=== PATIENT | male | born 1990 | race Caucasian/White ===

== ENCOUNTER → 2017-08-10 | Outpatient (CLI) | payer BC | LOC: M OUTALCOH 08:59 | PROVIDERS: ATTEND Psychiatry & Neurology Psychiatry | DX: F10.20 Alcohol dependence, uncomplicated (principal) ==

== ENCOUNTER 2017-10-18 15:00 | Outpatient (RCR) | payer BC | END 2017-10-19 | LOC: M OUTALCOH 15:00 | PROVIDERS: ATTEND Psychiatry & Neurology Psychiatry | DX: F10.20 Alcohol dependence, uncomplicated (principal); F17.200 Nicotine dependence, unspecified, uncomplicated ==

== ENCOUNTER 2017-10-25 15:00 | Outpatient (RCR) | payer BC | END 2017-11-19 | LOC: M OUTALCOH 11-01 15:00 | DX: F10.20 Alcohol dependence, uncomplicated (principal); F17.200 Nicotine dependence, unspecified, uncomplicated ==

== ENCOUNTER 2017-11-07 19:23 | Emergency (ER) | payer BC ==
[~2017-11-07] VITALS: Ht 162.6 cm; Wt 61.4 kg
[2017-11-07] MEDS ORDERED: PROZ10CA7 (19:34)
[2017-11-07] MEDS ORDERED: PENI500T PO (19:34)
[2017-11-07] MEDS ORDERED: IBUP-1114 PO (19:34)
[2017-11-07] MEDS ORDERED: NORCO 5/325MG TABLET (BULK FOR ED) PO ONE (20:45)
[2017-11-07] MEDS ORDERED: CLINDAMYCIN 150 MG CAP PO ONE (20:45)
[2017-11-07] MEDS ORDERED: CLEO300C2 PO (20:48)
[2017-11-07] MEDS ORDERED: NORCOTAB PO (20:48)
[2017-11-07 21:03] VITALS: BP 132/68
== END 2017-11-07 21:04 | disposition home or self-care (01) ==
LOC: M ED 19:23
DX: K02.9 Dental caries, unspecified (principal); K08.89 Other specified disorders of teeth and supporting structures; Z79.899 Other long term (current) drug therapy; Z88.0 Allergy status to penicillin

== ENCOUNTER 2017-11-27 10:57 | Outpatient (RCR) | payer BC | END 2017-12-20 | LOC: M OUTALCOH 11-29 16:00 | DX: F10.20 Alcohol dependence, uncomplicated (principal); F17.200 Nicotine dependence, unspecified, uncomplicated ==

== ENCOUNTER 2017-12-21 15:44 | Outpatient (RCR) | payer BC | END 2018-01-17 | LOC: M OUTALCOH 15:44 | DX: F10.20 Alcohol dependence, uncomplicated (principal); F17.200 Nicotine dependence, unspecified, uncomplicated ==

== ENCOUNTER 2018-01-23 16:00 | Outpatient (RCR) | payer BC | END 2018-02-17 | LOC: M OUTALCOH 02-07 16:00 | DX: F10.20 Alcohol dependence, uncomplicated (principal); F17.200 Nicotine dependence, unspecified, uncomplicated ==

== ENCOUNTER 2018-02-26 09:52 | Outpatient (RCR) | payer BC | END 2018-03-19 | LOC: M OUTALCOH 09:52 | DX: F10.20 Alcohol dependence, uncomplicated (principal); F17.200 Nicotine dependence, unspecified, uncomplicated ==

== ENCOUNTER → 2019-01-29 | Outpatient (CLI) | payer MEDICAID, SELFPAY ==
[~2019-01-29] MED LIST: CLEO300C2 PO; IBUP-1114 PO; NORCOTAB PO; PENI500T PO; PROZ10CA7
== END ==
LOC: M OUTALCOH 08:00
PROVIDERS: ATTEND Psychiatry & Neurology Psychiatry
DX: F10.20 Alcohol dependence, uncomplicated (principal)

== ENCOUNTER 2019-02-15 13:00 | Outpatient (RCR) | payer MEDICAID, SELFPAY | END 2019-02-17 | LOC: M OUTALCOH 13:00 | PROVIDERS: ATTEND Psychiatry & Neurology Psychiatry | DX: F10.20 Alcohol dependence, uncomplicated (principal); F17.200 Nicotine dependence, unspecified, uncomplicated ==

== ENCOUNTER 2019-03-18 14:00 | Outpatient (RCR) | payer OTHER, SELFPAY ==
[~2019-03-18 14:00] MED LIST changes: +HYDR-3715 PO; -NORCOTAB PO
== END 2019-03-19 ==
LOC: M OUTALCOH 14:00
PROVIDERS: ATTEND Psychiatry & Neurology Psychiatry
DX: F10.20 Alcohol dependence, uncomplicated (principal); F17.200 Nicotine dependence, unspecified, uncomplicated

== ENCOUNTER → 2019-04-19 | Outpatient (RCR) | payer OTHER | LOC: M OUTALCOH 03-22 16:19 | PROVIDERS: ATTEND Psychiatry & Neurology Psychiatry | DX: F10.20 Alcohol dependence, uncomplicated (principal); F17.200 Nicotine dependence, unspecified, uncomplicated ==

== ENCOUNTER 2019-05-15 16:00 | Outpatient (RCR) | payer OTHER | END 2019-05-19 | LOC: M OUTALCOH 16:00 | PROVIDERS: ATTEND Psychiatry & Neurology Psychiatry | DX: F10.20 Alcohol dependence, uncomplicated (principal); F17.200 Nicotine dependence, unspecified, uncomplicated ==

== ENCOUNTER 2019-06-18 12:52 | Outpatient (RCR) | payer OTHER | END 2019-06-19 | LOC: M OUTALCOH 12:52 | PROVIDERS: ATTEND Psychiatry & Neurology Psychiatry | DX: F10.20 Alcohol dependence, uncomplicated (principal); F17.200 Nicotine dependence, unspecified, uncomplicated ==

== ENCOUNTER 2019-07-17 12:00 | Outpatient (RCR) | payer OTHER | END 2019-07-20 | LOC: M OUTALCOH 12:00 | PROVIDERS: ATTEND Psychiatry & Neurology Psychiatry | DX: F10.20 Alcohol dependence, uncomplicated (principal); F17.200 Nicotine dependence, unspecified, uncomplicated ==

== ENCOUNTER 2019-08-12 15:57 | Outpatient (RCR) | payer OTHER | END 2019-08-19 | LOC: M OUTALCOH 15:57 | PROVIDERS: ATTEND Psychiatry & Neurology Psychiatry | DX: F10.20 Alcohol dependence, uncomplicated (principal); F17.200 Nicotine dependence, unspecified, uncomplicated ==

== ENCOUNTER 2019-08-26 15:10 | Outpatient (RCR) | payer OTHER | END 2019-09-19 | LOC: M OUTALCOH 15:10 | PROVIDERS: ATTEND Psychiatry & Neurology Psychiatry | DX: F10.20 Alcohol dependence, uncomplicated (principal); F17.200 Nicotine dependence, unspecified, uncomplicated ==

== ENCOUNTER 2019-09-30 14:10 | Outpatient (RCR) | payer OTHER | END 2019-10-19 | LOC: M OUTALCOH 14:10 | PROVIDERS: ATTEND Psychiatry & Neurology Psychiatry | DX: F10.20 Alcohol dependence, uncomplicated (principal); F17.200 Nicotine dependence, unspecified, uncomplicated ==

== ENCOUNTER 2019-11-04 13:48 | Outpatient (RCR) | payer OTHER | END 2019-11-19 | LOC: M OUTALCOH 13:48 | PROVIDERS: ATTEND Psychiatry & Neurology Psychiatry | DX: F10.20 Alcohol dependence, uncomplicated (principal); F17.200 Nicotine dependence, unspecified, uncomplicated ==

== ENCOUNTER 2019-12-09 13:56 | Outpatient (RCR) | payer OTHER | END 2019-12-20 | LOC: M OUTALCOH 13:56 | PROVIDERS: ATTEND Psychiatry & Neurology Addiction Medicine | DX: F10.20 Alcohol dependence, uncomplicated (principal); F17.200 Nicotine dependence, unspecified, uncomplicated ==

== ENCOUNTER 2020-01-06 15:54 | Outpatient (RCR) | payer OTHER | END 2020-01-18 | LOC: M OUTALCOH 15:54 | PROVIDERS: ATTEND Psychiatry & Neurology Addiction Medicine | DX: F10.20 Alcohol dependence, uncomplicated (principal); F17.200 Nicotine dependence, unspecified, uncomplicated ==

== ENCOUNTER 2020-02-10 16:00 | Outpatient (RCR) | payer OTHER, SELFPAY | END 2020-02-18 | LOC: M OUTALCOH 16:00 | PROVIDERS: ATTEND Psychiatry & Neurology Addiction Medicine | DX: F10.20 Alcohol dependence, uncomplicated (principal); F17.200 Nicotine dependence, unspecified, uncomplicated ==

== ENCOUNTER 2020-04-20 13:41 | Outpatient (RCR) | payer OTHER | END 2020-05-19 | LOC: M OUTALCOH 13:41 | PROVIDERS: ATTEND Psychiatry & Neurology Addiction Medicine | DX: F10.20 Alcohol dependence, uncomplicated (principal); F17.200 Nicotine dependence, unspecified, uncomplicated ==

== ENCOUNTER → 2020-05-18 | Outpatient (REF) | payer OTHER ==
[2020-05-18 17:53] LABS: ALBUMIN 4.1 GM/DL (3.2-5.2); ALT/SGPT 26 U/L (12-78); BILIRUBIN,TOTAL 0.4 MG/DL (0.2-1.0); BLOOD UREA NITROGEN 11 MG/DL (7-18); CALCIUM LEVEL 9.3 MG/DL (8.5-10.1); CARBON DIOXIDE LEVEL 32 MEQ/L (21-32); CHLORIDE LEVEL 104 MEQ/L (98-107); CREATININE FOR GFR 0.92 MG/DL (0.70-1.30); GLOMERULAR FILTRATION RATE > 60.0 (>60); GLUCOSE, FASTING 80 MG/DL (70-100); POTASSIUM SERUM 3.9 MEQ/L (3.5-5.1); SODIUM LEVEL 139 MEQ/L (136-145); TOTAL PROTEIN 7.5 GM/DL (6.4-8.2)
[2020-05-18 18:03] LABS: HEMATOCRIT 45.2 % (42.0-52.0); HEMOGLOBIN 15.3 g/dl (13.5-17.5); MEAN CORPUSCULAR HEMOGLOBIN 30.1 pg (27.0-33.0); MEAN CORPUSCULAR HGB CONC 33.8 g/dl (32.0-36.5); MEAN CORPUSCULAR VOLUME 88.8 fl (80.0-96.0); PLATELET COUNT, AUTOMATED 239 10^3/uL (150-450); RED BLOOD COUNT 5.09 10^6/uL (4.30-6.10); WHITE BLOOD COUNT 9.7 10^3/uL (4.0-10.0)
== END ==
LOC: M SFHCPLAZ 14:18
PROVIDERS: ATTEND Nurse Practitioner Adult Health
DX: Z00.00 Encounter for general adult medical examination without abnormal findings (principal)

== ENCOUNTER 2020-05-26 15:50 | Outpatient (RCR) | payer OTHER | END 2020-06-19 | LOC: M OUTALCOH 15:50 | PROVIDERS: ATTEND Psychiatry & Neurology Addiction Medicine | DX: F10.20 Alcohol dependence, uncomplicated (principal); F17.200 Nicotine dependence, unspecified, uncomplicated ==

== ENCOUNTER 2020-07-14 16:00 | Outpatient (RCR) | payer OTHER | END 2020-07-20 | LOC: M OUTALCOH 16:00 | PROVIDERS: ATTEND Psychiatry & Neurology Addiction Medicine | DX: F10.20 Alcohol dependence, uncomplicated (principal); F17.200 Nicotine dependence, unspecified, uncomplicated ==

== ENCOUNTER 2020-09-01 16:00 | Outpatient (RCR) | payer OTHER | END 2020-09-19 | LOC: M OUTALCOH 16:00 | PROVIDERS: ATTEND Psychiatry & Neurology Addiction Medicine | DX: F10.20 Alcohol dependence, uncomplicated (principal); F17.200 Nicotine dependence, unspecified, uncomplicated ==

== ENCOUNTER 2020-10-12 16:00 | Outpatient (RCR) | payer OTHER | END 2020-10-19 | LOC: M OUTALCOH 16:00 | PROVIDERS: ATTEND Psychiatry & Neurology Addiction Medicine | DX: F10.20 Alcohol dependence, uncomplicated (principal); F17.200 Nicotine dependence, unspecified, uncomplicated ==

== ENCOUNTER 2020-11-16 15:52 | Outpatient (RCR) | payer OTHER | END 2020-11-19 | LOC: M OUTALCOH 15:52 | PROVIDERS: ATTEND Psychiatry & Neurology Addiction Medicine | DX: F10.20 Alcohol dependence, uncomplicated (principal); F17.200 Nicotine dependence, unspecified, uncomplicated ==

== ENCOUNTER 2020-12-21 16:03 | Outpatient (RCR) | payer OTHER | END 2021-01-17 | LOC: M OUTALCOH 16:03 | PROVIDERS: ATTEND Psychiatry & Neurology Psychiatry | DX: F10.20 Alcohol dependence, uncomplicated (principal); F17.200 Nicotine dependence, unspecified, uncomplicated ==

== ENCOUNTER 2021-01-25 16:00 | Outpatient (RCR) | payer OTHER | END 2021-02-17 | LOC: M OUTALCOH 16:00 | PROVIDERS: ATTEND Psychiatry & Neurology Psychiatry | DX: F10.20 Alcohol dependence, uncomplicated (principal); F17.200 Nicotine dependence, unspecified, uncomplicated ==

== ENCOUNTER 2021-03-01 15:44 | Outpatient (RCR) | payer OTHER | END 2021-03-19 | LOC: M OUTALCOH 15:44 | PROVIDERS: ATTEND Psychiatry & Neurology Psychiatry | DX: F10.20 Alcohol dependence, uncomplicated (principal); F17.200 Nicotine dependence, unspecified, uncomplicated ==

== ENCOUNTER 2021-04-12 16:00 | Outpatient (RCR) | payer OTHER | END 2021-04-19 | LOC: M OUTALCOH 16:00 | PROVIDERS: ATTEND Psychiatry & Neurology Psychiatry | DX: F10.20 Alcohol dependence, uncomplicated (principal); F17.200 Nicotine dependence, unspecified, uncomplicated ==

== ENCOUNTER 2021-05-31 16:00 | Outpatient (RCR) | payer OTHER | END 2021-06-19 | LOC: M OUTALCOH 16:00 | PROVIDERS: ATTEND Psychiatry & Neurology Psychiatry | DX: F10.20 Alcohol dependence, uncomplicated (principal); F17.200 Nicotine dependence, unspecified, uncomplicated ==

== ENCOUNTER 2021-07-05 16:00 | Outpatient (RCR) | payer OTHER | END 2021-07-20 | LOC: M OUTALCOH 16:00 | PROVIDERS: ATTEND Psychiatry & Neurology Psychiatry | DX: F10.20 Alcohol dependence, uncomplicated (principal); F17.200 Nicotine dependence, unspecified, uncomplicated ==

== ENCOUNTER 2021-08-16 15:51 | Outpatient (RCR) | payer OTHER | END 2021-08-19 | LOC: M OUTALCOH 15:51 | PROVIDERS: ATTEND Psychiatry & Neurology Psychiatry | DX: F10.20 Alcohol dependence, uncomplicated (principal); F17.200 Nicotine dependence, unspecified, uncomplicated ==

== ENCOUNTER 2021-09-16 16:00 | Outpatient (RCR) | payer OTHER | END 2021-09-19 | LOC: M OUTALCOH 16:00 | PROVIDERS: ATTEND Psychiatry & Neurology Psychiatry | DX: F10.20 Alcohol dependence, uncomplicated (principal); F17.200 Nicotine dependence, unspecified, uncomplicated ==

== ENCOUNTER 2021-10-25 16:00 | Outpatient (RCR) | payer OTHER | END 2021-11-19 | LOC: M OUTALCOH 16:00 | PROVIDERS: ATTEND Psychiatry & Neurology Psychiatry | DX: F10.20 Alcohol dependence, uncomplicated (principal); F17.200 Nicotine dependence, unspecified, uncomplicated ==

== ENCOUNTER 2021-12-27 16:03 | Outpatient (RCR) | payer OTHER | END 2022-01-17 | LOC: M OUTALCOH 16:03 | PROVIDERS: ATTEND Psychiatry & Neurology Psychiatry | DX: F10.20 Alcohol dependence, uncomplicated (principal); F17.200 Nicotine dependence, unspecified, uncomplicated ==

== ENCOUNTER 2022-02-04 15:17 | Outpatient (RCR) | payer OTHER | END 2022-02-17 | LOC: M OUTALCOH 15:17 | PROVIDERS: ATTEND Psychiatry & Neurology Psychiatry | DX: F10.20 Alcohol dependence, uncomplicated (principal); F17.200 Nicotine dependence, unspecified, uncomplicated ==

== ENCOUNTER 2022-03-17 08:31 | Outpatient (RCR) | payer OTHER | END 2022-03-19 | LOC: M OUTALCOH 08:31 | PROVIDERS: ATTEND Psychiatry & Neurology Psychiatry | DX: F10.20 Alcohol dependence, uncomplicated (principal); F17.200 Nicotine dependence, unspecified, uncomplicated ==

== ENCOUNTER 2022-04-22 15:39 | Outpatient (RCR) | payer OTHER | END 2022-05-19 | LOC: M OUTALCOH 15:39 | PROVIDERS: ATTEND Psychiatry & Neurology Psychiatry | DX: F10.20 Alcohol dependence, uncomplicated (principal); F17.200 Nicotine dependence, unspecified, uncomplicated ==

== ENCOUNTER 2022-06-10 16:15 | Outpatient (RCR) | payer OTHER | END 2022-06-19 | LOC: M OUTALCOH 16:15 | PROVIDERS: ATTEND Psychiatry & Neurology Psychiatry | DX: F10.20 Alcohol dependence, uncomplicated (principal); F17.200 Nicotine dependence, unspecified, uncomplicated ==

== ENCOUNTER 2025-09-19 22:29 | Emergency (ER) | payer OTHER, SELFPAY ==
[~2025-09-19] VITALS: Ht 162.6 cm; Wt 59.1 kg
[~2025-09-19 22:29] MED LIST changes: +PROZ10CA11; -PROZ10CA7
[2025-09-19 23:08] LABS: PLATELET COUNT, AUTOMATED 213 10^3/uL (150-450)
[2025-09-19 23:37] LABS: AMPHETAMINES LEVEL URINE NEGATIVE (NEGATIVE); BARBITURATES URINE NEGATIVE (NEGATIVE); BENZODIAZEPINES URINE NEGATIVE (NEGATIVE); CANNABINOIDS URINE NEGATIVE (NEGATIVE); COCAINE METABOLITE URINE NEGATIVE (NEGATIVE); METHADONE URINE NEGATIVE (NEGATIVE); OPIATES URINE NEGATIVE (NEGATIVE); PHENCYCLIDINE URINE NEGATIVE (NEGATIVE)
[2025-09-19 23:40] LABS: ETHYL ALCOHOL (ETHANOL) 0.239 % (0.000-0.010)
[2025-09-19 23:41] LABS: ALT/SGPT 20 U/L (7.0-40); AST/SGOT 20 U/L (<34); CALCIUM LEVEL 8.6 MG/DL (8.5-10.1); CARBON DIOXIDE LEVEL 26 MMOL/L (20-31); CHLORIDE LEVEL 103 MMOL/L (98-107); CREATININE FOR GFR 0.78 MG/DL (0.70-1.30); GLOMERULAR FILTRATION RATE > 90.0 (>60); POTASSIUM SERUM 3.6 MMOL/L (3.5-5.1); SALICYLATE LEVEL < 3.0 MG/DL (<30); SODIUM LEVEL 140 MMOL/L (136-145)
[2025-09-20 06:41] VITALS: BP 143/80; TEMP 96.4; O2SAT 98
== END 2025-09-20 07:48 | disposition home or self-care (01) ==
LOC: M ED 09-20 02:29
DX: F10.129 Alcohol abuse with intoxication, unspecified (principal); F17.220 Nicotine dependence, chewing tobacco, uncomplicated; Z91.09 Other allergy status, other than to drugs and biological substances; Z88.1 Allergy status to other antibiotic agents; Z88.8 Allergy status to other drugs, medicaments and biological substances